=== PATIENT | female | born 1930 | race Caucasian/White ===

== ENCOUNTER 2019-03-23 11:55 | Emergency (ER) | payer MEDICARE ==
[~2019-03-23] VITALS: Ht 165.1 cm; Wt 77.3 kg
[2019-03-23 12:06] VITALS: TEMP 97.2
[2019-03-23 13:02] VITALS: BP 170/66; PULSE 65
[2019-03-23] MEDS ORDERED: AMOXICILLIN/CLA1 TA1 PO (13:14)
== END 2019-03-23 13:32 | disposition home or self-care (01) ==
LOC: COL.ER 11:55
DX: S01.312A Laceration without foreign body of left ear, initial encounter (principal); E78.00 Pure hypercholesterolemia, unspecified; I10 Essential (primary) hypertension; W01.198A Fall on same level from slipping, tripping and stumbling with subsequent striking against other object, initial encounter; Y92.009 Unspecified place in unspecified non-institutional (private) residence as the place of occurrence of the external cause